=== PATIENT | female | born 1995 | race Two or more races ===

== ENCOUNTER 2022-03-10 16:33 | Emergency (ER) | payer MEDICAID ==
[~2022-03-10] VITALS: Ht 149.9 cm; Wt 42.0 kg
[2022-03-10 17:07] LABS: Urine Bacteria FEW /hpf (None Seen); Urine Blood 3+ /uL (Negative); Urine Mucus FEW (None Seen); Urine Specific Gravity 1.023 (1.001-1.035); Urine WBC 5 /hpf (0 - 5)
[2022-03-10 18:53] LABS: Basophils # (auto) 0 10 ^3/uL (0-0.2); Basophils % (auto) 0.1 % (0.0-2.0); Eosinophils # (auto) 0.1 10 ^3/uL (0-0.8); Eosinophils % (auto) 0.4 % (0.0-7.0); Hemoglobin 10.1 g/dL (12.2-16.2); Lymphocytes # (auto) 1.4 10 ^3/uL (0.4-5.4); Lymphocytes % (auto) 8.8 % (10.0-50.0); Mean Corpuscular Hemoglobin 23.2 pg (28.0-32.0); Mean Corpuscular Hgb Conc. 31.6 g/dL (32.0-36.0); Mean Corpuscular Volume 73.3 fL (80.0-100.0); Monocytes # (auto) 0.9 10 ^3/uL (0-1.3); Monocytes % (auto) 5.4 % (0.0-12.0); Neutrophils # (auto) 13.6 10 ^3/uL (1.6-8.6); Neutrophils % (auto) 85.3 % (37.0-80.0); Red Blood Cells 4.37 10^6/uL (4.0-5.20); Red Cell Distribution Width 15.9 % (11.8-14.3); White Blood Cell 15.9 10^3/uL (4.4-10.8)
[2022-03-10 19:01] LABS: Albumin 2.4 g/dL (3.4-5.0); Calcium 8.3 mg/dL (8.5-10.1); Potassium 4.3 mmol/L (3.5-5.1)
[2022-03-10 19:17] LABS: Bilirubin, Total 4.1 mg/dL (0.2-1.0); Total Protein 8.6 g/dL (6.4-8.2)
[2022-03-10 19:33] LABS: Albumin 2.4 g/dL (3.4-5.0); Bilirubin, Direct 3.6 mg/dL (0-0.2)
[2022-03-10 19:48] LABS: Bilirubin, Total 4.1 mg/dL (0.2-1.0); Total Protein 8.7 g/dL (6.4-8.2)
[2022-03-10] MEDS ORDERED: levoFLOXacin 500MG 100 ML IV ONE (21:00)
[2022-03-10] MEDS ORDERED: fentaNYL CITRATE 100 MCG/2 ML VL IV ONE (21:00)
[2022-03-10 23:47] VITALS: BP 108/67
== END 2022-03-11 00:10 | disposition short-term general hospital (02) ==
LOC: ER 16:36
DX: K80.50 Calculus of bile duct without cholangitis or cholecystitis without obstruction (principal); N83.201 Unspecified ovarian cyst, right side; K83.8 Other specified diseases of biliary tract; K86.89 Other specified diseases of pancreas; Z90.49 Acquired absence of other specified parts of digestive tract; Z88.0 Allergy status to penicillin
CPT/HCPCS: 36415; 74176; 76705; 80053; 80076; 81001; 83690; 84702; 85025; 96365; 96375; 99285; J1956; J3010